=== PATIENT | male | born 1950 | race Hispanic/Latino ===

== ENCOUNTER → 2018-11-18 | Outpatient (CLI) | payer OTHER ==
[~2018-11-18] VITALS: Ht 175.3 cm; Wt 66.2 kg
[~2018-11-18] MED LIST: ATOR20TA65 PO; FISH1CAP49 PO; GEMF600T5 PO; HYDR25TA PO; METO-409 PO; REGADENOSON 0.4 MG/5 ML PF SYG IVP SCH; SAW450CA7 PO; TAMS0.4C32 PO; [UNRECOGNIZED DRUG - OTHER] PO
== END | disposition home or self-care (01) ==
LOC: SHCH 08:32
PROVIDERS: ATTEND Internal Medicine Cardiovascular Disease
DX: R07.9 Chest pain, unspecified (principal)
CPT/HCPCS: 78452; 93017; 96374; A9500 ×2; J2785

== ENCOUNTER → 2024-07-28 | Outpatient (CLI) | payer OTHER ==
[~2024-07-28] MED LIST changes: -GEMF600T5 PO; +GEMF600T89 PO; -REGADENOSON 0.4 MG/5 ML PF SYG IVP SCH
[2024-07-28] MEDS: REGADENOSON 0.4 MG/5 ML PF SYG IVP ONE (11:23)
== END | disposition home or self-care (01) ==
LOC: SHCH 08:44
PROVIDERS: ATTEND Internal Medicine Cardiovascular Disease
DX: I25.10 Atherosclerotic heart disease of native coronary artery without angina pectoris (principal)
CPT/HCPCS: 78452; 93017; J2785; A9500 ×2